=== PATIENT | male | born 1960 | race Caucasian/White ===

== ENCOUNTER 2016-09-11 14:24 | Outpatient (CLI) | payer OTHER ==
[2016-09-11 18:04] LABS: BUN - BLOOD UREA NITROGEN 14 mg/dL (6-20); CALCIUM 9.3 mg/dL (8.5-10.3); CARBON DIOXIDE - CO2 27 mmol/L (21-32); CHLORIDE 103 mmol/L (101-111); CHOL/HDL RATIO 3.3 (<5.0); CHOLESTEROL 173 mg/dL; CREATININE 1.4 mg/dL (0.6-1.2); GFR - MDRD 53 (>89); GLUCOSE 88 mg/dL (70-100); HDL CHOLESTEROL 52 mg/dL; LDL/HDL RATIO 1.8 (<3.6); SODIUM 139 mmol/L (135-145); TRIGLYCERIDES 130 mg/dL; VLDL CHOLESTEROL 26 mg/dL
== END 2016-09-11 14:25 | disposition home or self-care (01) ==
LOC: LAB.F 14:24
PROVIDERS: ATTEND Internal Medicine
DX: Z00.00 Encounter for general adult medical examination without abnormal findings (principal)
CPT/HCPCS: 36415; 80048; 80061

== ENCOUNTER 2016-09-17 14:44 | Outpatient (CLI) | payer OTHER | END 2016-09-17 14:45 | disposition home or self-care (01) | DX: N18.3 Chronic kidney disease, stage 3 (moderate) (principal) ==

== ENCOUNTER 2016-09-28 12:58 | Outpatient (CLI) | payer OTHER ==
--- NOTE | 2016-10-01 16:06 | Ultrasound Report ---
RENAL ULTRASOUND: 09/28/2016 CLINICAL INDICATION: Chronic kidney disease, stage 3. TECHNIQUE: Real-time scanning was performed with community service representative static images obtained. FINDINGS: The right kidney measures 11.9 x 5.3 x 5.3 cm. No hydronephrosis, focal renal lesion, or perinephric collection is seen. The left kidney measures 9.3 x 5.3 x 5.2 cm. Cortical cysts are present, measuring up to 3.1 cm, and there is cortical thinning in the upper pole, which may be related to previous infection. No hydronephrosis or shadowing calculus is seen. Pre void, the bladder measures 10.9 x 10.4 x 8.1 cm, yielding a prevoid volume of 478 mL. Bilateral ureteral jets are present. Small bladder diverticulum is noted at the left base. Postvoid residual is 50 mL. IMPRESSION: LEFT RENAL ATROPHY, WITH LIKELY CORTICAL SCARRING FROM PREVIOUS INFECTION. A 50 ML POSTVOID RESIDUAL. MTDD
== END 2016-09-28 12:59 | disposition home or self-care (01) ==
LOC: DI 12:58
PROVIDERS: ATTEND Internal Medicine
DX: N18.3 Chronic kidney disease, stage 3 (moderate) (principal); N26.1 Atrophy of kidney (terminal)
CPT/HCPCS: 76770